=== PATIENT | female | born 1955 | race Hispanic/Latino ===

== ENCOUNTER → 2024-08-09 | Day surgery (SDC) | payer MEDICARE ==
[2024-08-02 11:59] LABS: BASOPHILS % 0.3 % (0.0-1.0); EOSINOPHILS # (AUTO) 0.1 (0.0-0.4); EOSINOPHILS % 1.8 % (0.0-6.0); HEMATOCRIT 37.2 % (34.2-44.1); HEMOGLOBIN 12.3 g/dL (12.0-16.0); LYMPHOCYTES # (AUTO) 1.5 (1.0-3.2); LYMPHOCYTES % 20.8 % (18.0-39.1); MEAN CORPUSCULAR HEMOGLOBIN 28.5 pg (28-32); MEAN CORPUSCULAR HGB CONC 33.1 g/dL (31-35); MEAN CORPUSCULAR VOLUME 86.3 fL (81-99); MONOCYTES # (AUTO) 0.5 (0.2-0.8); MONOCYTES % 6.2 % (4.4-11.3); NEUTROPHILS # (AUTO) 5.1 (2.1-6.9); NEUTROPHILS % 70.5 % (38.7-80.0); PLATELET COUNT 174 x10e3/uL (140-360); RED BLOOD COUNT 4.31 x10e6/uL (3.6-5.1); RED CELL DISTRIBUTION WIDTH 13.2 % (11.7-14.4); WHITE BLOOD COUNT 7.21 x10e3/uL (4.8-10.8)
[2024-08-02 12:36] LABS: ANION GAP 14.3 mmol/L (8-16); CALCIUM 9.5 mg/dL (8.4-10.2); CREATININE, SERUM 1.08 mg/dL (0.57-1.11); POTASSIUM 4.3 mmol/L (3.5-5.1)
[~2024-08-09] MED LIST: ACETAMINOPHEN 1000 MG/100 ML 100 ML IV ONE; DEXAMETHASONE SOD PHOS INJ 4 MG/ML SDV ONE; DICYCLOMINE HCL10 MG PO; FAMOTIDINE 20 MG/2 ML VIAL IV ONE; FENTANYL CITRATE/PF 100MCG/2 ML INJ ONE; HYDROCHLOROTHIA25 MG PO; LEVOTHYROXINE50 MCG PO; LIDOCAINE HCL 2% LOCAL INJ 5 ML SDV VIAL INJ ONE; LIPITOR20 MG PO; OMEGA 3 FISH O1 EACH PO; ONDANSETRON HCL INJ 2MG/ML 2ML 2 MG/ML VIAL ONE; PROPOFOL IV EMULSION 10 MG/ML 20 ML VIAL ONE; SEVOFLURANE INHAL SOLN 250 ML PEN BTL ONE; SPIRIVA18 MCG INH; VENTOLIN HFA18 GM INH; ZESTRIL40 MG PO
[2024-08-09] MEDS: LACTATED RINGER'S 1,000 ML ONE (06:16)
[2024-08-09] MEDS: CEFAZOLIN SODIUM 2 GM ONE (06:17)
[2024-08-09 07:39] VITALS: TEMP 97.5
[2024-08-09] MEDS: KETOROLAC TROMETHAMINE 30 MG/ML VIAL ONE (08:09)
[2024-08-09 08:45] VITALS: BP 133/81; PULSE 68; RESP 18; O2SAT 99
== END | disposition home or self-care (01) ==
LOC: OR 05:50
PROVIDERS: ATTEND Podiatrist Foot & Ankle Surgery
DX: M79.89 Other specified soft tissue disorders (principal); M20.11 Hallux valgus (acquired), right foot; I10 Essential (primary) hypertension; E03.9 Hypothyroidism, unspecified; F41.9 Anxiety disorder, unspecified; F32.A Depression, unspecified; Z01.810 Encounter for preprocedural cardiovascular examination; Z01.812 Encounter for preprocedural laboratory examination; Z01.818 Encounter for other preprocedural examination; Z79.899 Other long term (current) drug therapy
CPT/HCPCS: 28039; 28292; 36415; 71046; 80048; 85025; 88304; 93005; C1713; J0131; J1100; J1885; J2003; J2405; J2704; J3010; J7121